=== PATIENT | male | born 1955 | race African-American/Black ===

== ENCOUNTER 2021-09-24 12:43 | Observation (INO) | payer MEDICARE ==
[2021-09-21 11:28] LABS: BASOPHILS % 0.2 % (0.0-1.0); EOSINOPHILS % 0.6 % (0.0-6.0); HEMATOCRIT 37.5 % (38.2-49.6); HEMOGLOBIN 11.5 g/dL (14.0-18.0); LYMPHOCYTES # (AUTO) 0.9 (1.0-3.2); LYMPHOCYTES % 19.5 % (18.0-39.1); MEAN CORPUSCULAR HEMOGLOBIN 24.2 pg (28-32); MEAN CORPUSCULAR HGB CONC 30.7 g/dL (31-35); MEAN CORPUSCULAR VOLUME 78.9 fL (81-99); MONOCYTES # (AUTO) 0.4 (0.2-0.8); MONOCYTES % 8.1 % (4.4-11.3); NEUTROPHILS # (AUTO) 3.5 (2.1-6.9); NEUTROPHILS % 71.4 % (38.7-80.0); PLATELET COUNT 208 x10e3/uL (140-360); RED BLOOD COUNT 4.75 x10e6/uL (4.3-5.7); RED CELL DISTRIBUTION WIDTH 12.9 % (11.7-14.4)
[2021-09-21 11:36] LABS: INR 0.91
[2021-09-21 11:37] LABS: PARTIAL THROMBOPLASTIN TIME 26.3 seconds (23.8-35.5)
[2021-09-21 11:40] LABS: ANION GAP 13.4 mmol/L (8-16); CALCIUM 9.4 mg/dL (8.4-10.2); CREATININE, SERUM 1.84 mg/dL (0.72-1.25); POTASSIUM 4.4 mmol/L (3.5-5.1)
[~2021-09-24] VITALS: Ht 167.6 cm; Wt 66.8 kg
[~2021-09-24 12:43] MED LIST: CRESTOR10 MG PO; DIOVAN80 MG PO; GLUCOSAMINE &1 EACH PEG; METFORMIN HCL500 MG PO; MULTI-VITAMIN1 EACH PO; OMEGA 3 FISH O1 EACH PO; SUPER B COMPLE1 EACH PO; ZINC PO
[2021-09-24] MEDS ORDERED: Vancomycin IV 500 MG ONE (13:17)
[2021-09-24] MEDS ORDERED: BACITRACIN ZINC 15 GM OINT ONE (13:17)
[2021-09-24] MEDS ORDERED: LEVOFLOXACIN 500MG/D5W 100ML 100 ML IV ONE (13:22)
[2021-09-24] MEDS ORDERED: CLINDAMYCIN 300MG 50 ML IV ONE (13:22)
[2021-09-24] MEDS ORDERED: GENTAMICIN 80MG/NS 100 ML 200 ML IV ONE (13:22)
[2021-09-24] MEDS ORDERED: LIDOCAINE HCL 2% LOCAL INJ 5 ML SDV VIAL INJ ONE (13:46)
[2021-09-24] MEDS ORDERED: NEOSTIGMINE 1 MG/ML 10ML VIAL ONE (13:46)
[2021-09-24] MEDS ORDERED: SEVOFLURANE INHAL SOLN 250 ML PEN BTL ONE (13:46)
[2021-09-24] MEDS ORDERED: ONDANSETRON HCL INJ 2MG/ML 2ML 2 MG/ML VIAL ONE (13:46)
[2021-09-24] MEDS ORDERED: LABETALOL HCL 5 MG/ML 20ML VIAL ONE (13:46)
[2021-09-24] MEDS ORDERED: POVIDONE IODINE 0.05% 0.05 % ML PO ONE (13:46)
[2021-09-24] MEDS ORDERED: DEXAMETHASONE SOD PHOS INJ 4 MG/ML SDV ONE (13:46)
[2021-09-24] MEDS ORDERED: PROPOFOL IV EMULSION 10 MG/ML 20 ML VIAL ONE (13:46)
[2021-09-24] MEDS ORDERED: GLYCOPYRROLATE INJ 0.2 MG/ML VIAL ONE (13:46)
[2021-09-24] MEDS ORDERED: NALOXONE HCL INJ 0.4 MG/ML AMP IV PRN (15:00)
[2021-09-24] MEDS ORDERED: ACETAMINOPHEN/CODEINE 300MG - 30MG TAB PO PRN (15:00)
[2021-09-24] MEDS ORDERED: DIPHENHYDRAMINE HCL 25 MG CAP PO PRN (15:00)
[2021-09-24] MEDS ORDERED: PHENAZOPYRIDINE HCL 100 MG TAB PO PRN (15:00)
[2021-09-24] MEDS ORDERED: ACETAMINOPHEN 1000 MG/100 ML IV PRN (15:00)
[2021-09-24] MEDS ORDERED: ONDANSETRON HCL INJ 2MG/ML 2ML 2 MG/ML VIAL IV PRN (15:00)
[2021-09-24] MEDS ORDERED: GENTAMICIN SULFATE 40 MG/ML 2 ML VIAL ONE ×2 (15:21→15:39)
[2021-09-24] MEDS ORDERED: MIDAZOLAM HCL 2 MG/2 ML VIAL ONE (16:54)
[2021-09-24] MEDS ORDERED: FENTANYL CITRATE/PF 100MCG/2 ML INJ ONE (16:54)
[2021-09-24] MEDS: MORPHINE SULFATE 1 MG/ML 30ML PCA IV PRN (17:21)
[2021-09-24] MEDS ORDERED: MORPHINE SULFATE 1 MG/ML 30ML PCA ONE (17:29)
[2021-09-24 17:43] LABS: BASOPHILS % 0.1 % (0.0-1.0); EOSINOPHILS % 0.1 % (0.0-6.0); HEMATOCRIT 34.9 % (38.2-49.6); HEMOGLOBIN 10.5 g/dL (14.0-18.0); LYMPHOCYTES # (AUTO) 0.8 (1.0-3.2); LYMPHOCYTES % 12.4 % (18.0-39.1); MEAN CORPUSCULAR HEMOGLOBIN 24.1 pg (28-32); MEAN CORPUSCULAR HGB CONC 30.1 g/dL (31-35); MEAN CORPUSCULAR VOLUME 80.2 fL (81-99); MONOCYTES # (AUTO) 0.2 (0.2-0.8); MONOCYTES % 2.9 % (4.4-11.3); NEUTROPHILS # (AUTO) 5.7 (2.1-6.9); NEUTROPHILS % 84.4 % (38.7-80.0); PLATELET COUNT 182 x10e3/uL (140-360); RED BLOOD COUNT 4.35 x10e6/uL (4.3-5.7)
[2021-09-24 18:03] LABS: ANION GAP 14.7 mmol/L (8-16); CALCIUM 8.5 mg/dL (8.4-10.2); CREATININE, SERUM 1.67 mg/dL (0.72-1.25); POTASSIUM 4.7 mmol/L (3.5-5.1)
[2021-09-24] MEDS: D5.45%NS/KCL 20MEQ 1,000 ML IV SCH (18:44)
[2021-09-24] MEDS: DOCUSATE SODIUM 100 MG CAP PO SCH (18:45)
[2021-09-24 20:00] VITALS: BP 151/81
[2021-09-24 20:33] VITALS: BP 151/81
[2021-09-24] MEDS: CLINDAMYCIN 300MG 50 ML IV SCH (20:49)
[2021-09-24 21:33] VITALS: BP 151/81
[2021-09-25 00:25] VITALS: BP 150/80
[2021-09-25] MEDS: D5.45%NS/KCL 20MEQ 1,000 ML IV SCH ×2 (01:10→08:34)
[2021-09-25 04:00] VITALS: BP 135/77
[2021-09-25] MEDS: CLINDAMYCIN 300MG 50 ML IV SCH ×2 (04:16→11:16)
[2021-09-25 05:34] LABS: HEMATOCRIT 33.5 % (38.2-49.6); HEMOGLOBIN 10.6 g/dL (14.0-18.0); LYMPHOCYTES # (AUTO) 0.7 (1.0-3.2); LYMPHOCYTES % 8.2 % (18.0-39.1); MEAN CORPUSCULAR HEMOGLOBIN 24.2 pg (28-32); MEAN CORPUSCULAR HGB CONC 31.6 g/dL (31-35); MEAN CORPUSCULAR VOLUME 76.5 fL (81-99); MONOCYTES # (AUTO) 0.6 (0.2-0.8); MONOCYTES % 7.3 % (4.4-11.3); NEUTROPHILS # (AUTO) 6.8 (2.1-6.9); NEUTROPHILS % 84.3 % (38.7-80.0); PLATELET COUNT 200 x10e3/uL (140-360); RED BLOOD COUNT 4.38 x10e6/uL (4.3-5.7); RED CELL DISTRIBUTION WIDTH 12.7 % (11.7-14.4)
[2021-09-25] MEDS: MORPHINE SULFATE 1 MG/ML 30ML PCA IV PRN (05:40)
[2021-09-25 05:54] LABS: ANION GAP 13.9 mmol/L (8-16); CALCIUM 8.4 mg/dL (8.4-10.2); CREATININE, SERUM 1.84 mg/dL (0.72-1.25); POTASSIUM 4.9 mmol/L (3.5-5.1)
[2021-09-25 07:20] VITALS: BP 121/63
[2021-09-25] MEDS: DOCUSATE SODIUM 100 MG CAP PO SCH (08:34)
[2021-09-25] MEDS ORDERED: ONDANSETRON HCL 4 MG ORAL DISINTEGRATING TAB PO PRN ×2 (09:00)
[2021-09-25 09:14] VITALS: BP 121/63
[2021-09-25 11:07] VITALS: BP 116/69
[2021-09-25] MEDS ORDERED: LEVOFLOXACIN 500MG/D5W 100ML 100 ML IV SCH (13:00)
[2021-09-25 15:32] VITALS: BP 168/84
[2021-09-25] MEDS ORDERED: CLINDAMYCIN HCL 150 MG CAP PO SCH (20:00)
[2021-09-26] MEDS ORDERED: LEVOFLOXACIN 500 MG TAB PO SCH (13:00)
== END 2021-09-25 15:43 | disposition home or self-care (01) ==
LOC: OR 12:43 → INTOOBSV 14:55 → PACU V 14:55 → MED/SURG 18:04
PROVIDERS: ADMIT Internal Medicine; ATTEND Internal Medicine
DX: N52.9 Male erectile dysfunction, unspecified (principal); N40.0 Benign prostatic hyperplasia without lower urinary tract symptoms; Z85.46 Personal history of malignant neoplasm of prostate; N32.89 Other specified disorders of bladder; E11.22 Type 2 diabetes mellitus with diabetic chronic kidney disease; I12.9 Hypertensive chronic kidney disease with stage 1 through stage 4 chronic kidney disease, or unspecified chronic kidney disease; N18.9 Chronic kidney disease, unspecified; B19.10 Unspecified viral hepatitis B without hepatic coma; H40.9 Unspecified glaucoma; E78.5 Hyperlipidemia, unspecified; M19.90 Unspecified osteoarthritis, unspecified site; M10.9 Gout, unspecified; Z88.0 Allergy status to penicillin; Z01.810 Encounter for preprocedural cardiovascular examination; Z01.812 Encounter for preprocedural laboratory examination; Z01.818 Encounter for other preprocedural examination; Z20.822 Contact with and (suspected) exposure to COVID-19; Z79.84 Long term (current) use of oral hypoglycemic drugs; Z79.899 Other long term (current) drug therapy
CPT/HCPCS: 36415 ×3; 52000; 54405; 71046; 80048 ×3; 82948 ×2; 83735; 85025 ×3; 85610; 85730; 93005; 94799; C1776; C1813 ×2; G0378 ×2; J1100; J1580 ×2; J1956 ×2; J2001; J2250; J2270 ×2; J2405; J2704; J2710; J3010; J3370; J3490; U0002